=== PATIENT | male | born 1975 | race Caucasian/White ===

== ENCOUNTER 2018-02-14 06:34 | Day surgery (SDC) | payer BC ==
[2018-02-04 11:48] VITALS: BMI 32.5
[2018-02-14] MEDS ORDERED: BUPIVACAINE HCL/EPINEPHRINE/PF 30 ML VIAL IJ ONE (07:13)
[2018-02-14] MEDS ORDERED: EPINEPHrine 1:1,000 1 MG/1 ML - 30ML VIAL (INJECTION) ONE (07:13)
[2018-02-14] MEDS ORDERED: MIDAZOLAM HCL 2 MG/2 ML SINGLE DOSE VIAL ONE ×3 (09:54→10:44)
[2018-02-14] MEDS ORDERED: PROPOFOL 20 ML ONE ×4 (10:37→11:40)
[2018-02-14] MEDS ORDERED: ceFAZolin SODIUM 1 GM VIAL ONE (10:42)
[2018-02-14] MEDS ORDERED: KETAMINE HCL 200 MG/20 ML VIAL ONE (10:55)
[2018-02-14] MEDS ORDERED: GLYCOPYRROLATE 0.2 MG/1 ML VIAL ONE (11:06)
--- NOTE | 2018-02-14 12:31 | OP ---
Operative Note - Note: Operative Date: 02/14/18 Pre-Operative Diagnosis: right shoulder biceps tendonitis, Partial thickness RCT Operation: Right shoulder arthroscopy with Subacromial decompression, subpectorial biceps tenodesis Findings: no evidence of rotator cuff tear,+ full thickness biceps tendon tear Post-Operative Diagnosis: Same as Pre-op Surgeon: Pelon Lamar Substitute Crossing Guard: Rosemary Harkins Anesthesiologist/APPAREL STOCK CHECKER: Nadine Lloyd Anesthesia: Local (block), MAC Estimated Blood Loss (mls): 15 Fluid Volume Replaced (mls): 1,100 Operative Report Dictated: Yes
--- NOTE | 2018-02-14 12:32 | SURG ---
Surgery Child Care Giver Note Child Care Giver: Rosemary Harkins PA-C Date of Service: 02/14/18 Diagnosis: Biceps tendonitis, partial thickness Rotator cuff tear Procedure: Right shoulder arthroscopy with Subacromial decompression, subpectoral biceps tenodesis I was present for the entirety of the operative procedure. For further detail, please refer to operative report. Visit type - Case Type Case Type: Scheduled - Emergency Emergency Visit: No - New patient This patient is new to me today: Yes Date on this admission: 02/14/18
[2018-02-14 13:19] VITALS: TEMP 97.8
[2018-02-14] MEDS ORDERED: oxyCODONE HCL 5 MG TABLET PO PRN ×2 (13:47→13:48)
[2018-02-14] MEDS ORDERED: ONDANSETRON 4 MG/2 ML VIAL IVPUSH PRN (13:47)
[2018-02-14] MEDS ORDERED: oxyCODONE HCL 10 MG SUSTAINED ACTING TABLET PO ONE (13:48)
--- NOTE | 2018-02-14 13:50 | DS ---
Physical Examination Vital Signs: Vital Signs Temperature 97.8 F 02/14/18 13:05 Pulse Rate 77 02/14/18 13:05 Respiratory Rate 16 02/14/18 13:05 Blood Pressure 121/72 02/14/18 13:05 O2 Sat by Pulse Oximetry (%) 95 02/14/18 13:05 Discharge Summary Reason For Visit: ROTATOR CUFF TEAR, BICEPS DISLOCATION, RIGHT SHLD Condition: Good - Instructions Diet, Activity, Other Instructions: Post Operative Instructions: Shoulder Arthroscopy Dr Pelon Lamar 1. Pain following a Shoulder Arthroscopy is variable and can be significant. Some patients will have more pain than others. You have been provided with a prescription for medication that contains a narcotic. You are not allowed to drive while on this medication. You should take Tylenol (Acetaminophen) when taking the pain medication. Feel free to take medications such as Ibuprofen or Naprosyn in addition to the pain medicine if you do not have any problems with the NSAID class of medications. 2. Apply ice to the shoulder for 15 minutes every hour. You may continue this for as many days as necessary. 3. You may find sleeping on an incline (reclining chair) to be more comfortable for the first few days. 4. You must remain in your sling at all times except when showering. The only exception to this is to allow you to stretch your elbow a few times a day to prevent your hand and forearm from swelling. 5. You are not to use your arm to reach for anything, lift anything or carry anything until instructed otherwise. 6. You may remove the bandages in 48 hours. You may shower at that point but do not submerge incisions 7. Place band-aids on the sutures after your shower.Do not put any creams or lotions on the incision until after the sutures are removed. 8. Please call the office to schedule a visit to have your sutures removed. 9. If for any reason you believe you may have an infection or are concerned, please feel free to call me. I can be reached through our office number 24 hours a day. 10. Please call our office with any questions; we will review the surgical findings during your post-operative visit. Disposition: HOME - Home Medications Comprehensive Discharge Medication List: Ambulatory Orders Aspirin [ASA -] 81 mg PO DAILY 02/04/18 Atenolol [Tenormin -] 50 mg PO DAILY 02/04/18 Atorvastatin Ca [Lipitor] 10 mg PO HS 02/04/18 Duloxetine HCl [Cymbalta] 20 mg PO DAILY 02/04/18
[2018-02-14 14:00] VITALS: BP 127/83; PULSE 82
[2018-02-14] MEDS ORDERED: LACTATED RINGERS SOLUTION 1,000 ML IV SCH (14:00)
--- NOTE | 2018-02-19 18:28 | PATH ---
Surgical Pathology Report Patient Name: SHERMAN SINGH Med. Rec. #: [id number] /Age/Gender: 1975 (Age: 42) / M Account: [id number] Location: [facility] Taken: 02/14/2018 Received: 02/14/2018 Reported: 02/19/2018 Physicians: Pelon Lamar M.D. Specimen(s) Received A: SHAVINGS RIGHT SHOULDER B: BICEPS TENDON RIGHT Clinical History Right rotator cuff tear, biceps dislocation Final Diagnosis A. RIGHT SHOULDER SHAVINGS: FRAGMENTS OF FIBROSYNOVIAL TISSUE WITH DEGENERATIVE CHANGE. B. BICEPS TENDON, RIGHT, EXCISION: DENSE FIBROCONNECTIVE TISSUE WITH GRANULATION TISSUE FORMATION AND DEGENERATIVE CHANGE. Electronically Signed Stella Hernandez M.D. Gross Description A. Received in formalin labeled "shavings right shoulder" are multiple fragments of white-lee fibrocartilaginous soft tissue measuring 4 x 3 x 0.5 cm aggregate. Credit Collections Clerk sections are submitted in one cassette. B. Received in formalin labeled "biceps tendon right" is inked and the white-lee fragment consistent with tendon which measures 5 x 1 x 0.5 cm. Credit Collections Clerk sections submitted one cassette. MLSZ/02/17/2018 tanner/02/17/2018
== END 2018-02-14 14:00 | disposition home or self-care (01) ==
LOC: FASU 06:34
PROVIDERS: ATTEND Orthopaedic Surgery
PROC: 0LS10ZZ Reposition Right Shoulder Tendon, Open Approach (ICD-10-PCS; 2018-02-14)
PROC: 0RNJ4ZZ Release Right Shoulder Joint, Percutaneous Endoscopic Approach (ICD-10-PCS; 2018-02-14)
PROC: 0RBJ4ZZ Excision of Right Shoulder Joint, Percutaneous Endoscopic Approach (ICD-10-PCS; principal; 2018-02-14 11:03)
PROC: 0RNJ4ZZ Release Right Shoulder Joint, Percutaneous Endoscopic Approach (ICD-10-PCS; 2018-02-14 11:03)
DX: M66.821 Spontaneous rupture of other tendons, right upper arm (principal); M75.51 Bursitis of right shoulder; M24.111 Other articular cartilage disorders, right shoulder
CPT/HCPCS: 88304-TC; 94760

== ENCOUNTER 2023-05-20 06:28 | Day surgery (SDC) | payer OTHER ==
[2023-05-14 11:09] VITALS: BMI 33.2
[2023-05-20] MEDS ORDERED: CEFAZOLIN 2 GM in DEXTROSE 5%-WATER - 50 ML IVPB ONE (06:56)
[2023-05-20] MEDS ORDERED: BUPIVACAINE HCL/EPINEPHRINE/PF 30 ML VIAL IJ ONE (07:39)
[2023-05-20] MEDS ORDERED: MIDAZOLAM HCL 2 MG/2 ML SINGLE DOSE VIAL ONE (08:08)
[2023-05-20] MEDS ORDERED: ACETAMINOPHEN INJECTION 100 ML IVPB ONE (08:09)
[2023-05-20] MEDS ORDERED: LIDOCAINE HCL 2% 100 MG/5 ML DISP.SYRIN ONE (08:12)
[2023-05-20] MEDS ORDERED: PROPOFOL 20 ML ONE ×3 (08:12→09:44)
[2023-05-20] MEDS ORDERED: SUCCINYLCHOLINE CHLORIDE 200 MG/10 ML SYRINGE ONE (08:12)
[2023-05-20] MEDS ORDERED: ceFAZolin SODIUM 1 GM VIAL ONE ×2 (08:23)
[2023-05-20] MEDS ORDERED: KETOROLAC TROMETHAMINE 30 MG/1 ML VIAL ONE (08:39)
[2023-05-20] MEDS ORDERED: ONDANSETRON 4 MG/2 ML VIAL ONE ×2 (08:39→09:48)
[2023-05-20] MEDS ORDERED: FENTANYL CITRATE/PF 50 MCG/ML VIAL ONE ×3 (10:24→10:53)
[2023-05-20] MEDS ORDERED: ACETAMINOPHEN 325 MG TABLET (FP) PO PRN (10:29)
[2023-05-20] MEDS ORDERED: ONDANSETRON 4 MG/2 ML VIAL IVPUSH PRN (10:29)
[2023-05-20] MEDS ORDERED: LACTATED RINGERS SOLUTION 1,000 ML IV SCH (10:30)
[2023-05-20] MEDS: oxyCODONE HCL 5 MG TABLET PO PRN (11:17)
[2023-05-20 11:27] VITALS: TEMP 97.5
[2023-05-20] MEDS ORDERED: oxyCODONE HCL 5 MG TABLET ONE (11:28)
[2023-05-20 12:10] VITALS: BP 128/92; PULSE 72; RESP 20
== END 2023-05-20 12:12 | disposition home or self-care (01) ==
LOC: FASU 06:28
PROVIDERS: ATTEND Orthopaedic Surgery
PROC: 0LQ60ZZ Repair Left Lower Arm and Wrist Tendon, Open Approach (ICD-10-PCS; principal; 2023-05-20 08:47)
DX: S46.212A Strain of muscle, fascia and tendon of other parts of biceps, left arm, initial encounter (principal); X58.XXXA Exposure to other specified factors, initial encounter; Y92.9 Unspecified place or not applicable; Y93.9 Activity, unspecified
CPT/HCPCS: 24342; C1713; 73090-TC-LT-FY; 94760; J0131